=== PATIENT | female | born 1985 | race Caucasian/White ===

== ENCOUNTER 2021-01-15 19:34 | Emergency (ER) | payer BC, SELFPAY ==
--- NOTE | 2021-01-15 19:40 | ED.URI ---
HPI - URI/Sore Throat General Chief Complaint: Upper Respiratory Infection Stated Complaint: cough/earpain/headache Time Seen by Provider: 01/15/21 19:40 Source: patient and RN notes reviewed Mode of arrival: ambulatory Limitations: no limitations History of Present Illness HPI Narrative: 35-year-old female presents with concern for rhinorrhea, nasal congestion, scratchy throat, cough. Reports Covid exposure last week. Reports she has been vaccinated for Covid. She denies shortness of breath, body aches, chills, sweats, fever. Reports she takes Marlys and Flonase. MD elicited complaint: cough Related Data Home Medications Medication Instructions Recorded Confirmed clonazepam 2 mg tablet 2 mg PO DAILY 05/03/19 01/15/21 norethindrone 0.4 mg-ethinyl 1 tablet PO DAILY 05/03/19 01/15/21 estradiol 35 mcg tablet sertraline 100 mg tablet 100 mg PO DAILY 05/03/19 01/15/21 Allergies Allergy/AdvReac Type Severity Reaction Status Date / Time levofloxacin Allergy Unknown joint Verified 01/15/21 19:55 swelling Review of Systems Review of Systems: CONSTITUTIONAL: Denies malaise, chills, sweats, or fever. EYES: Denies visual changes, redness, or discharge. ENT: Reports rhinorrhea, congestion, otalgia and sore throat. CARDIOVASCULAR: Denies chest pain, palpitations, or edema. RESPIRATORY: Reports cough. Denies dyspnea. GASTROINTESTINAL: Denies abdominal pain, nausea, vomiting, diarrhea SKIN: Denies rash or itching. MUSCULOSKELETAL: Denies myalgia. NEUROLOGIC: Reports headache. All systems reviewed & are unremarkable except as noted in HPI and below PMFSH Past Medical History Medical History (Updated 01/15/21 @ 20:07 by Grace Davis NP) Anxiety Bronchitis Chronic migraine with aura Endometriosis Insomnia Mixed hyperlipidemia Surgical History Surgical History History of arthroscopy of left knee History of laparoscopy Family History Family History Grandparent Family history of pancreatic cancer Family history of lung cancer Father Hypertension Family history of elevated blood lipids Mother Family history of elevated blood lipids Social History Social History (Updated 01/16/20 @ 09:28 by Isela Trujillo Social History: Single Smoking status: Never smoker Second hand tobacco smoke exposure: No Alcohol intake: current Alcohol use details: socially Substance use: never Substance use type: does not use Gender identity (if verbalized by the patient): Female Comments At time of signature, agree with nursing past medical, surgical, social and family history. There is no relevant family history pertinent to the presenting complaint Exam Narrative: GENERAL: Well-appearing, well-nourished, and in no acute distress. HEAD: Normocephalic EYES: PERRLA, conjunctivae clear ENT: Nares clear, turbinates erythematous, clear discharge. Mucous membranes moist. TM pearly bacon with sharp light reflex bilaterally; no tragal tenderness. Oropharynx mildly erythematous without lesions. Tonsils not enlarged and without exudate, no drooling, no hoarseness, no trismus, uvula midline. NECK: Supple. No lymphadenopathy CHEST: Clear to auscultation, breath sounds equal. No wheezing, rhonchi, rales, or stridor. No respiratory distress, speaks in full sentences. HEART: Regular rate and rhythm. No murmur heard. SKIN: Warm, dry, no rash. NEURO: Alert and oriented x3. PSYCH: Normal mood and affect Course Course Emergency Course: Patient is aware of diagnosis, understands and agrees to treatment plan. Anticipatory guidance given. Patient agrees to follow-up as directed and is aware of reasons to seek care at the emergency department. Portions of this record may have been created with voice recognition software Vital Signs Vital signs: Reviewed. MDM - URI/Sore Throat [facility] Narrative Medical decisio
[2021-01-15 19:47] VITALS: BP 130/91; PULSE 90; RESP 16; TEMP 37.2; O2SAT 99
== END 2021-01-15 20:13 | disposition home or self-care (01) ==
PROVIDERS: Emergency Provider Nurse Practitioner; PCP Family Medicine
DX: U07.1 COVID-19 (principal); E78.2 Mixed hyperlipidemia; N80.9 Endometriosis, unspecified; F41.9 Anxiety disorder, unspecified
CPT/HCPCS: 87426; 99213; C9803; G0463

== ENCOUNTER 2021-04-16 16:49 | Emergency (ER) | payer BC, SELFPAY ==
[2021-04-16 16:58] VITALS: BP 144/82; PULSE 92; RESP 16; TEMP 36.9; O2SAT 100
--- NOTE | 2021-04-16 16:59 | ED.URI ---
HPI - URI/Sore Throat General Chief Complaint: Upper Respiratory Infection Stated Complaint: sore throat/abd pain/cough Source: patient and RN notes reviewed Mode of arrival: ambulatory Limitations: no limitations History of Present Illness HPI Narrative: Isela is a 35-year-old female patient ambulated into the [facility] today. Patient states she has a 5 to 6-day history of sore throat, sinus drainage, and right ear pain. Patient states taking Zyrtec since Wednesday. 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 Patient had Covid January 15, 2021. Patient has also had her Covid vaccines and booster. Related Data Home Medications Medication Instructions Recorded Confirmed clonazepam 2 mg tablet 2 mg PO DAILY 05/03/19 04/16/21 norethindrone 0.4 mg-ethinyl 1 tablet PO DAILY 05/03/19 04/16/21 estradiol 35 mcg tablet sertraline 100 mg tablet 100 mg PO DAILY 05/03/19 04/16/21 cetirizine [Zyrtec] 10 mg PO DAILY 04/16/21 04/16/21 Allergies Allergy/AdvReac Type Severity Reaction Status Date / Time levofloxacin Allergy Unknown joint Verified 04/16/21 16:54 swelling Review of Systems Review of Systems: CONSTITUTIONAL: Denies body aches, fever, chills, or sweats. EYES: Denies visual changes, redness, or discharge. ENT: + rhinorrhea, congestion, sore throat, and right otalgia. CARDIOVASCULAR: Denies chest pain, palpitations, or edema. RESPIRATORY: Denies cough or dyspnea. GASTROINTESTINAL: Denies abdominal pain, nausea, vomiting, or diarrhea. GENITOURINARY: Denies dysuria or hematuria. SKIN: Denies rash, itching, or wounds. MUSCULOSKELETAL: Denies back pain, joint pain, or myalgia. NEUROLOGIC: Denies headache, numbness, tingling, or weakness. PSYCH: Denies depression or anxiety. All systems reviewed & are unremarkable except as noted in HPI and below PMFSH Past Medical History Medical History Anxiety Bronchitis Chronic migraine with aura Endometriosis Insomnia Mixed hyperlipidemia Surgical History Surgical History History of arthroscopy of left knee History of laparoscopy Family History Family History Grandparent Family history of pancreatic cancer Family history of lung cancer Father Hypertension Family history of elevated blood lipids Mother Family history of elevated blood lipids Social History Social History Social History: Single Smoking status: Never smoker Second hand tobacco smoke exposure: No Alcohol intake: current Alcohol use details: socially Substance use: never Substance use type: does not use Gender identity (if verbalized by the patient): Female Sexual Orientation (if Verbalized by the Patient): Straight or Heterosexual Comments At time of signature, I have reviewed and agree with nursing past medical, surgical, social and family history unless otherwise noted. Please see nursing chart for further information. There is no relevant family history pertinent to the presenting complaint Exam Narrative: GENERAL: Well-appearing, well-nourished, and in no acute distress. HEAD: Normocephalic, atraumatic. EYES: EOMI. No redness or drainage. Conjunctivae normal. ENT: Mucous membranes pink and moist. Nasal membranes erythematous clear rhinorrhea. Bilateral tympanic membranes are dull with mild bulging and moderate fluid. Posterior pharynx is erythemic, with mild edema and without exudate. Uvula midline. NECK: Normal AROM. Supple. No lymphadenopathy. CHEST: No respiratory distress. Clear to auscultation. ABDOMEN: Soft, nontender, nondistended, normal active bowel sounds. MUSCULOSKELETAL: No bony tenderness. EXTREMITIES: Normal range of motion. No edema. SKIN: Warm, dry, no rash. Capillary refi
== END 2021-04-16 17:15 | disposition home or self-care (01) ==
PROVIDERS: Emergency Provider Nurse Practitioner Family; PCP Family Medicine
DX: J01.90 Acute sinusitis, unspecified (principal); N80.9 Endometriosis, unspecified; E78.2 Mixed hyperlipidemia; F41.9 Anxiety disorder, unspecified
CPT/HCPCS: 99213; G0463

== ENCOUNTER 2021-04-18 17:01 | Emergency (ER) | payer BC, SELFPAY ==
[2021-04-18 17:37] VITALS: BP 135/90; PULSE 96; RESP 20; TEMP 36.5; O2SAT 100
--- NOTE | 2021-04-18 19:40 | ED.URI ---
HPI - URI/Sore Throat General Chief Complaint: Upper Respiratory Infection Stated Complaint: sore throat Source: patient and RN notes reviewed Limitations: no limitations History of Present Illness HPI Narrative: The vaccinated patient, who is a schoolteacher non-smoker/nondrinker, returns for 6-day history of scratchy sore throat, mild hoarseness nasal congestion, ear fullness and mild cough. Symptoms are mild but persistent unrelieved with symptomatic treatment including prednisone 2 days ago[ which has caused some insomnia] . No fever, vomiting/diarrhea; no loss of taste/smell, CP, vomiting/diarrhea, S OB, wheezing-she had Covid illness a couple months ago. Related Data Home Medications Medication Instructions Recorded Confirmed norethindrone 0.4 mg-ethinyl 1 tablet PO DAILY 05/03/19 04/18/21 estradiol 35 mcg tablet sertraline 100 mg tablet 100 mg PO DAILY 05/03/19 04/18/21 cetirizine [Zyrtec] 10 mg PO DAILY 04/16/21 04/18/21 clonazepam 0.5 mg PO DAILY 04/18/21 04/18/21 Allergies Allergy/AdvReac Type Severity Reaction Status Date / Time levofloxacin Allergy Unknown joint Verified 04/18/21 17:29 swelling Review of Systems Review of Systems: General/Constitutional: No weight loss,fever Eyes: N0: Redness,discharge Ears/Nose/Throat: No: Epistaxis,ear discharge Respiratory: Denies: Hemoptysis Gastrointestinal: No Vomiting, Bleeding-rectal Skin: No Lumps, eruption Neurologic: No Focal Weakness,Sz Hematologic: Denies: Petechiae/Purpura Psychiatric: No: Suicida ideationl All Other Systems: Reviewed and Negative [facility] Past Medical History Medical History Anxiety Bronchitis Chronic migraine with aura Endometriosis Insomnia Mixed hyperlipidemia Surgical History Surgical History History of arthroscopy of left knee History of laparoscopy Family History Family History Grandparent Family history of pancreatic cancer Family history of lung cancer Father Hypertension Family history of elevated blood lipids Mother Family history of elevated blood lipids Social History Social History Social History: Single Smoking status: Never smoker Second hand tobacco smoke exposure: No Alcohol intake: current Alcohol use details: socially Substance use: never Substance use type: does not use Gender identity (if verbalized by the patient): Female Sexual Orientation (if Verbalized by the Patient): Straight or Heterosexual Comments At time of signature, agree with nursing past medical, surgical, social and family history. There is no relevant family history pertinent to the presenting complaint Exam Narrative: General Appearance: Well appearing, Well nourished EYE: PERRLA, Conjunctiva clear Ears: Auditory canal normal, TM normal Nose: Rhinorrhea, Mucousal erythema Mouth/Throat: MM moist, Uvula midline, Pharyngeal erythema Neck: Supple, No adenopathy Respiratory: No respiratory distress, Breath sounds equal, Clear to auscultation Cardiovascular: RRR, No JVD Musculoskeletal: Non tender, Normal strength Skin: Warm, Dry Neurological: A&O x3, CN II-XII intact Psychiatric: Normal mood, Normal affect Course Vital Signs Vital signs: Vital Signs Temperature 97.7 F 04/18/21 17:37 Pulse Rate 96 04/18/21 17:37 Respiratory Rate 20 04/18/21 17:37 Blood Pressure 135/90 04/18/21 17:37 Pulse Oximetry 100 04/18/21 17:37 Temperature 97.7 F 04/18/21 17:37 Pulse Rate 96 04/18/21 17:37 Respiratory Rate 20 04/18/21 17:37 Blood Pressure 135/90 04/18/21 17:37 Pulse Oximetry 100 04/18/21 17:37 MDM - URI/Sore Throat Lab Data Labs: Lab Results 04/18/21 Range/Units 18:54 POC SARS CoV-2 Ag Negative (Negative) D
== END 2021-04-18 19:06 | disposition home or self-care (01) ==
PROVIDERS: Emergency Provider Emergency Medicine; PCP Family Medicine
DX: R13.10 Dysphagia, unspecified (principal)
CPT/HCPCS: 87426; 99213; C9803; G0463

== ENCOUNTER 2021-09-05 02:19 | Day surgery (SDC) | payer BC, SELFPAY ==
[2021-09-04 14:31] VITALS: BMI 31.5
--- NOTE | 2021-09-04 14:36 | SUR.PREOP ---
Report to the Outpatient Waiting Room, entrance under the green pavilion located off [facility], at time ___1015____ on date _09/05/21 . OR Time: ___1214 . - You and your visitor will be asked a series of questions to screen for COVID 19 for your protection. - A mask is required within the hospital. Preoperative COVID Testing Requirements: No COVID Test needed if: (proof is required; if not received patient will have Rapid Test prior to entry) - Patient has received COVID Vaccine at least 14 days prior to procedure date or - Patient has positive COVID test result within last 90 days of surgery date. COVID Test needed if above criteria is not met If not COVID vaccinated a COVID test must be conducted within 72 hours of surgery and patient is asked to isolate self from time of testing until procedure. You will go to the [facility] for your COVID testing. The [facility] site is located at the corner of [address] from [facility]. You will only be called if COVID results are positive and your surgeon may reschedule your elective surgery date. Patients may have clear liquids (water, carbonated beverages, clear teas, apple juice) until 3 hours prior to surgery with a maximum of 20 ounces. - No food from midnight until time of surgery - Infants may have breast milk until 4 hours before surgery, formula 6 hours prior to surgery. - Children will be allowed to drink immediately following surgery. If applicable, please bring a bottle or sippy cup to assist with drinking. Juice, water, soda, and popsicles are readily available. For infants on formula, please bring formula the day of surgery. Pacifiers are allowed. Take the following medications with a SIP of water the morning of surgery: ____n/a Medications to discontinue per physician n/a Date to take last dose Please no make-up, nail bahamian, hairspray, perfume, deodorant, or body powder the day of surgery. No jewelry (including any body piercings) or valuables the day of surgery, leave them at home. Please take a shower or bath the night before, or the morning of, surgery with an antibacterial soap. Wear comfortable, loose fitting clothing. Children are encouraged to wear pajamas. - Jewelry must be removed prior to entering the operating room. Rings and piercings that are not removed may be cut off. - The hospital will not accept responsibility for valuables. - Please leave all valuables, including medications, at home the day of surgery. If you are going home after surgery, a licensed driver's license reviewing officer must drive you home. - NO public transportation without another adult. - We recommend that an adult stay with you for 24 hours following discharge. - We also recommend that you do not drive, make important decision, drink alcoholic beverages, or take any drugs that were not prescribed by your health care provider for at least 24 hours after your discharge time. For Pediatric surgeries, we recommend two adults accompany the child home (only one inside the building at this time). One visitor will be allowed to accompany the patient into the hospital. Patients visitor will be instructed to remain with patient at all times or leave the building. We will allow the visitor to come back to the postoperative area when patient is ready. Follow any additional instructions given to you from your surgeon. Telephone instructions given to __patient and asked if any additional questions and then verbalized understanding. Patient advised to call surgeon office or pre surgery nurse liaison [phone] if any additional questions.
[2021-09-05] VITALS (10 sets, daily range): BP systolic 107–141; BP diastolic 65–93; PULSE 70–94; RESP 12–19; TEMP 36.3–36.8; O2SAT 97–100
--- NOTE | 2021-09-05 07:11 | PM.IMHP ---
H&P: HPI History of Present Illness Date/Time: 09/05/21 07:11 35-year-old admitted for laparoscopic right cystectomy possible cyst destruction and likely salpingo-oophorectomy secondary to pain. Ultrasound shows a large ovarian cyst. Her pain has been unrelenting. Risks and benefits reviewed Chief Complaint: Right-sided pelvic pain with ovarian cyst on imaging Review of Systems Review of Systems: All systems reviewed & are unremarkable except as noted in HPI and below PMFSH Past Medical History Medical History Anxiety Bronchitis Chronic migraine with aura Endometriosis Insomnia Mixed hyperlipidemia Surgical History Surgical History History of arthroscopy of left knee History of laparoscopy Family History Family History Grandparent Family history of pancreatic cancer Family history of lung cancer Father Hypertension Family history of elevated blood lipids Mother Family history of elevated blood lipids Social History Social History Social History: Single Smoking status: Never smoker Second hand tobacco smoke exposure: No Alcohol intake: current Alcohol use details: socially Substance use: never Substance use type: does not use Living arrangements: alone Gender identity (if verbalized by the patient): Female Sexual Orientation (if Verbalized by the Patient): Straight or Heterosexual Meds Home Medications and Allergies Home Medications Medication Instructions Recorded Confirmed Type norethindrone 0.4 mg-ethinyl 1 tablet PO DAILY 05/03/19 09/04/21 History estradiol 35 mcg tablet sertraline 100 mg tablet 100 mg PO HS 05/03/19 09/04/21 History clonazepam 0.5 mg PO HS 04/18/21 09/04/21 History Allergies Allergy/AdvReac Type Severity Reaction Status Date / Time levofloxacin Allergy Unknown joint Verified 04/18/21 17:29 swelling Exam Const: General: no acute distress Eyes: General: appearance normal, both eyes and all related structures Neck: Neck: supple and no JVD Thyroid: thyroid normal Resp: Effort & Inspection: normal respiratory effort Auscultation: clear to auscultation bilaterally Cardio: Rate: regular rate Rhythm: regular rhythm GI: Inspection: non-distended GI Palp: Yes Soft to palpation, No Tenderness to palpation present (GI) and No Guarding due to palpation present (GI) Auscultation: normal bowel sounds : External Female Exam: normal external appearance Speculum Exam - Cervix: normal appearance of the cervix Bimanual exam- vagina & uterus: uterine shape normal Bimanual Exam- Adnexa, other: tender on the right Skin: General skin exam: no rashes or lesions noted Extrem: General: normal to inspection and no edema Psych: Mental Status: mental status grossly normal Affect: normal affect Assessment and Plan Additional Plan Impression: Right ovarian cyst and pelvic pain Plan: Laparoscopic right cystectomy
--- NOTE | 2021-09-05 07:12 | WPDHPUPDATE1 ---
History and Physical Update Update Date/Time: 09/05/21 07:12 History and Physical has been reviewed, including an updated exam of the patient. There are NO changes in the patient's condition. Risks, benefits, and alternatives have been discussed and questions answered. Patient agrees to proceed with procedure.
[2021-09-05] MEDS: ACETAMINOPHEN 500 MG TABLET 1000 MG PO (10:37)
[2021-09-05] MEDS: KETOROLAC 15 MG/ML VIAL (*BKC) IV PUSH (10:50)
--- NOTE | 2021-09-05 10:58 | WPDANESEPPF ---
Anes - Initial Pre Proc Eval Procedure: Operation Date: 09/05/21 12:15 Proposed Procedures p Laparoscopic Right Ovarian Cystectomy - Zaid Friedman MD Date/Time: 09/05/21 10:58 Surgeon: Zaid Friedman MD Pre Op Diagnosis: pelvic pain, right ovarian cyst Patient Data Age: 35 Gender: F Height: 1.78 m Weight: 101.4 kg Allergies Allergy/AdvReac Type Severity Reaction Status Date / Time doxycycline Allergy Mild Other Verified 09/05/21 10:28 levofloxacin Allergy Unknown joint Verified 09/05/21 10:28 swelling Home Medications Medication Instructions Recorded Confirmed Type norethindrone 0.4 mg-ethinyl 1 tablet PO DAILY 05/03/19 09/05/21 History estradiol 35 mcg tablet sertraline 100 mg tablet 100 mg PO HS 05/03/19 09/05/21 History clonazepam 0.5 mg PO HS 04/18/21 09/05/21 History hydrocodone-acetaminophen 1 tablet PO Q4H PRN #30 tablet 09/05/21 Rx Patient hx anesthesia problems: none Family hx anesthesia problems: none Results Review: All pre-operative results and documents have been reviewed as part of the pre-operative evaluation. [facility] Past Medical History Medical History Anxiety Bronchitis Chronic migraine with aura Endometriosis Insomnia Mixed hyperlipidemia Surgical History Surgical History History of arthroscopy of left knee History of laparoscopy Family History Family History Grandparent Family history of pancreatic cancer Family history of lung cancer Father Hypertension Family history of elevated blood lipids Mother Family history of elevated blood lipids Social History Social History Social History: Single Smoking status: Never smoker Second hand tobacco smoke exposure: No Alcohol intake: current Alcohol use details: socially Substance use: never Substance use type: does not use Living arrangements: alone Gender identity (if verbalized by the patient): Female Sexual Orientation (if Verbalized by the Patient): Straight or Heterosexual Anes - Eval Final PreProcedure Day of Procedure 09/05/21 10:58 Patient weight: obese Heart: regular rate and rhythm Lungs: clear to auscultation and normal air movement Airway: Mallampati scale class II Neurological: alert and oriented Last oral intake: >/= 8 hours ASA classification: II Emergent: no Anesthetic plan: proceed Anesthesia type and monitoring: general ETT and standard monitoring Results Review: All pre-operative results and documents have been reviewed as part of the pre-operative evaluation. Informed Consent: The patient's anesthetic plan and its attendant risks and benefits were discussed with the patient/family/POA. Questions were solicited and answers provided to the satisfaction of the patient/family/POA.
[2021-09-05] MEDS: LACTATED RINGERS 1,000 ML 30 ML IV CONT ×3 (11:20→14:47)
[2021-09-05] MEDS: SCOPOLAMINE 1.5 MG PATCH TRANSDERM (11:29)
--- NOTE | 2021-09-05 12:50 | W.PM.PROC2 ---
Procedure Note - Detailed Date of Procedure 09/05/21 Pre-op Diagnosis pelvic pain, right ovarian cyst Post-op Diagnosis Same Procedure Performed Laparoscopic destruction of right ovarian cyst Surgeon Zaid Friedman MD Anesthesia General Indications this 35-year-old female with known fibroids and right ovarian cyst with severe pelvic pain Findings a large fibroid uterus was seen with irregular fibroids. Left ovary and tube were within normal limits the right tube was normal and the left ovary contained about a 4cm ovarian cyst that had a benign look to it Description of Procedure patient was prepped draped in the normal sterile fashion placed in dorsal position. Under trach anesthesia weighted speculum placed posterior fornix vagina. Anterior lip of the cervix grasped with single-tooth tenaculum and the Riggins's cannula inserted to the cervix these were attached together to be used later for uterine manipulation. After the bladder clear urine the weighted speculum was removed and gloves were changed. An infraumbilical incision made the Veress needle passed in the abdomen. Abdomen filled with CO2 gas [id number]. The 5mm trocar advanced under direct visualization with the Opti view and no injury seen. Patient placed in Trendelenburg and a suprapubic incision made. The 5mm trocar advanced under direct visualization assuring no injury. A 5cc of serosanguineous fluid seen in the cul-de-sac suction and removed. A large right ovarian cyst was seen was benign in nature the opposite ovary tube appeared within normal limits and several irregular fibroids were noted in the uterus. The appendix and gallbladder appeared within normal limits the ovary was opened in linear fashion and drained of about 30cc of serosanguineous fluid this was the suction and removed. No other abnormalities were seen in the gas removed from the abdomen. The trocars removed and the incisions closed with 4 Monocryl and glue the patient was awake and went to recovery in satisfactory condition. All sponge, needle, instrument counts were correct. There were no immediate complications noted Estimated Blood Loss 5 Drains No Packing No Pathology None sent Complications No immediate complications Condition Stable Disposition PACU
[2021-09-05] MEDS: fentaNYL CITRATE INJ (*CRX) 100 MCG/2 ML VIAL 25 MCG IV PUSH ×8 (13:15→13:43)
[2021-09-05] MEDS: ONDANSETRON INJ 4 MG/2 ML VIAL IV PUSH (14:06)
[2021-09-05] MEDS: diphenhydrAMINE HCl INJ 50 MG/ML VIAL 25 MG IV PUSH (14:41)
== END 2021-09-05 15:38 | disposition home or self-care (01) ==
PROVIDERS: PCP Nurse Practitioner Family; Visit Provider Obstetrics & Gynecology
PROC: (CPT 49320; principal; 2021-09-05 12:15)
DX: N83.201 Unspecified ovarian cyst, right side (principal); D25.9 Leiomyoma of uterus, unspecified; R10.2 Pelvic and perineal pain; F41.9 Anxiety disorder, unspecified; N80.9 Endometriosis, unspecified; G47.00 Insomnia, unspecified; E78.2 Mixed hyperlipidemia; E66.9 Obesity, unspecified; Z68.32 Body mass index [BMI] 32.0-32.9, adult
CPT/HCPCS: 58662; 36415; 86850; 86900; 86901; A9270; J1100; J1200; J1885; J2250; J2405; J2704; J2710; J3010; J7120

== ENCOUNTER 2022-05-01 10:17 | Emergency (ER) | payer BC, SELFPAY ==
[2022-05-01 10:50] VITALS: BP 134/92; PULSE 121; RESP 16; TEMP 36.2; O2SAT 99
--- NOTE | 2022-05-01 11:11 | ED.URI ---
HPI - URI/Sore Throat General Chief Complaint: Upper Respiratory Infection Stated Complaint: cough,sore throat,stuffy nose Time Seen by Provider: 05/01/22 11:46 Source: patient and RN notes reviewed Mode of arrival: ambulatory Limitations: no limitations History of Present Illness HPI Narrative: 36-year-old female presents with concern for 3 week history of sinus congestion, cough, general malaise. Reports symptoms worsen over the last 3 days. Reports she has been taking iuhb-fkq-[id number] medications without relief. MD elicited complaint: cough and nasal congestion Related Data Home Medications Medication Instructions Recorded Confirmed norethindrone 0.4 mg-ethinyl 1 tablet PO DAILY 05/03/19 05/01/22 estradiol 35 mcg tablet (Vyfemla (28)) sertraline 100 mg tablet (Zoloft) 100 mg PO HS 05/03/19 05/01/22 clonazepam 0.5 mg tablet 0.5 mg PO HS 04/18/21 05/01/22 Allergies Allergy/AdvReac Type Severity Reaction Status Date / Time doxycycline Allergy Mild Other Verified 05/01/22 11:47 levofloxacin Allergy Unknown joint Verified 05/01/22 11:47 swelling Review of Systems Review of Systems: CONSTITUTIONAL: Reports malaise. Denies chills, sweats, or fever. EYES: Denies visual changes, redness, or discharge. ENT: Reports rhinorrhea, congestion, sinus pain. Denies otalgia and sore throat. CARDIOVASCULAR: Denies chest pain, palpitations, or edema. RESPIRATORY: Reports cough. Denies dyspnea. GASTROINTESTINAL: Denies abdominal pain, nausea, vomiting, diarrhea SKIN: Denies rash or itching. MUSCULOSKELETAL: Denies myalgia. NEUROLOGIC: Denies headache. All systems reviewed & are unremarkable except as noted in HPI and below PMFSH Past Medical History Medical History Anxiety Bronchitis Chronic migraine with aura Endometriosis Insomnia Mixed hyperlipidemia Surgical History Surgical History History of arthroscopy of left knee History of laparoscopy Family History Family History Grandparent Family history of pancreatic cancer Family history of lung cancer Father Hypertension Family history of elevated blood lipids Mother Family history of elevated blood lipids Social History Social History Social History: Single Smoking status: Never smoker Second hand tobacco smoke exposure: No Alcohol intake: current Alcohol use details: socially Substance use: never Substance use type: does not use Gender identity (if verbalized by the patient): Female Sexual Orientation (if Verbalized by the Patient): Straight or Heterosexual Comments At time of signature, agree with nursing past medical, surgical, social and family history. There is no relevant family history pertinent to the presenting complaint Exam Narrative: GENERAL: nontoxic appearing and in no acute distress. HEAD: Normocephalic EYES: PERRLA, conjunctivae clear ENT: Nares clear, turbinates edematous and erythematous Mucous membranes moist. TM pearly bacon with dull light reflex bilaterally; no tragal tenderness. Oropharynx not erythematous without lesions. Tonsils not enlarged and without exudate, no drooling, no hoarseness, no trismus, uvula midline. NECK: Supple. No lymphadenopathy CHEST: Clear to auscultation, breath sounds equal. No wheezing, rhonchi, rales, or stridor. No respiratory distress, speaks in full sentences. HEART: Regular rate and rhythm. No murmur heard. SKIN: Warm, dry, no rash. NEURO: Alert and oriented x3. PSYCH: Normal mood and affect Course Course Emergency Course: Patient is aware of diagnosis, understands and agrees to treatment plan. Anticipatory guidance given. Patient agrees to follow-up as directed and is aware of reasons to seek care at the emergency department. Portions of th
== END 2022-05-01 11:56 | disposition home or self-care (01) ==
PROVIDERS: Emergency Provider Nurse Practitioner
DX: J32.9 Chronic sinusitis, unspecified (principal); J40 Bronchitis, not specified as acute or chronic; N80.9 Endometriosis, unspecified; E78.2 Mixed hyperlipidemia; F41.9 Anxiety disorder, unspecified
CPT/HCPCS: 87804; 99213; G0463

== ENCOUNTER 2022-10-26 18:15 | Emergency (ER) | payer BC, SELFPAY ==
[2022-10-26 18:20] VITALS: BP 137/97; PULSE 97; RESP 18; TEMP 36.4; O2SAT 99
--- NOTE | 2022-10-26 18:27 | ED.EAR ---
HPI - Ear Problem General Chief complaint: Ear Stated complaint: lt ear pain Time Seen by Provider: 10/26/22 18:27 Source: patient Mode of arrival: ambulatory Limitations: no limitations History of Present Illness HPI Narrative: 37 y/o female presented for c/o left ear pain and hearing loss for 10 days. Patient has taken a course of Augmentin as prescribed by urgent care, but denies any relief in symptoms. She then followed up with ENT Dr Camarena on 10/20/22 at which time he drained the ear fluid and she started a steroid. States she completed the abx and steroids yesterday but pain is now severe. Rates /, hurts with chewing. Endorses occasional clear drainage, occasional dizziness. Denies tinnitus. Denies vomiting, fever or chills. Scheduled to f/u with ENT in 3 days. MD Complaint: ear pain Related Data Home Medications Medication Instructions Recorded Confirmed sertraline 100 mg tablet (Zoloft) 100 mg PO HS 05/03/19 10/26/22 clonazepam 0.5 mg tablet 0.5 mg PO HS 04/18/21 10/26/22 relugolix 40 mg-estradiol 1 1 tablet PO DAILY 10/20/22 10/26/22 mg-norethindrone acetate 0.5 mg tablet (Myf[place]) Allergies Allergy/AdvReac Type Severity Reaction Status Date / Time doxycycline Allergy Mild Other Verified 10/26/22 18:21 levofloxacin Allergy Unknown joint Verified 10/26/22 18:21 swelling Review of Systems Review of Systems: CONSTITUTIONAL: Denies malaise, chills, or fever. EYES: Denies visual changes, redness, or discharge. ENT: Denies rhinorrhea, congestion, sinus pain, and sore throat. Reports ear pain CARDIOVASCULAR: Denies chest pain, palpitations, or edema. RESPIRATORY: Denies cough or dyspnea. GASTROINTESTINAL: Denies abdominal pain, nausea, vomiting, diarrhea SKIN: Denies rash or itching. MUSCULOSKELETAL: Denies myalgia. NEUROLOGIC: Denies headache. All systems reviewed & are unremarkable except as noted in HPI and below PMFSH Past Medical History Medical History Anxiety Bronchitis Chronic migraine with aura Endometriosis Fluid level behind tympanic membrane of left ear Insomnia Mixed hyperlipidemia Pain in left ear Surgical History Surgical History History of arthroscopy of left knee History of laparoscopy Family History Family History Grandparent Family history of pancreatic cancer Family history of lung cancer Father Hypertension Family history of elevated blood lipids Mother Family history of elevated blood lipids Social History Social History Social History: Caffeine-daily Smoking status: Never smoker Second hand tobacco smoke exposure: No Alcohol intake: current Alcohol use details: rarely Substance use: never Substance use type: does not use Lack of Transportation: No Lack of Food: Never True Current Housing: I Have Housing Concerned About Future Housing: No Difficulty Paying Gas/Electric Bills: No Difficulty Paying for Meds: No Currently Unemployed: No Education: Bachelor's Degree Difficulty w/ Childcare or Family Care: No Living arrangements: alone Occupation/Education: occupation Gender identity (if verbalized by the patient): Female Sexual Orientation (if Verbalized by the Patient): Straight or Heterosexual Comments At time of signature, agree with nursing past medical, surgical, social and family history. There is no relevant family history pertinent to the presenting complaint Exam Narrative: GENERAL: Well-appearing, no acute distress. HEAD: Normocephalic EYES: conjunctivae clear ENT: Nares clear. Mucous membranes moist. Right TM pearly bacon with normal light reflex; Left TM erythematous and bulging with purulent effusion; no tragal or mastoid tenderness. Decreased hearing to left. NEC
== END 2022-10-26 18:42 | disposition home or self-care (01) ==
PROVIDERS: Emergency Provider Nurse Practitioner Family
DX: H66.005 Acute suppurative otitis media without spontaneous rupture of ear drum, recurrent, left ear (principal); N80.9 Endometriosis, unspecified; E78.2 Mixed hyperlipidemia; F41.9 Anxiety disorder, unspecified
CPT/HCPCS: 99213; G0463

== ENCOUNTER 2023-03-30 15:13 | Emergency (ER) | payer BC, SELFPAY ==
[2023-03-30 15:24] VITALS: BP 130/81; PULSE 93; RESP 16; TEMP 36.7; O2SAT 99
--- NOTE | 2023-03-30 15:49 | ED.URI ---
HPI - URI/Sore Throat General Chief Complaint: Upper Respiratory Infection Stated Complaint: Sinus Time Seen by Provider: 03/30/23 15:49 Source: patient, RN notes reviewed and old records reviewed Mode of arrival: ambulatory Limitations: no limitations History of Present Illness HPI Narrative: 37-year-old female presents to the [facility] with complaints of sinus congestion, rhinorrhea. Symptoms started last or Wednesday, 4 -5 days ago. Has tried [id number] products minimal to no relief. Related Data Home Medications Medication Instructions Recorded Confirmed sertraline 100 mg tablet (Zoloft) 100 mg PO HS 05/03/19 03/30/23 clonazepam 0.5 mg tablet 0.5 mg PO HS 04/18/21 03/30/23 relugolix 40 mg-estradiol 1 1 tablet PO DAILY 10/20/22 03/30/23 mg-norethindrone acetate 0.5 mg tablet (Myf[place]) rosuvastatin 10 mg tablet 10 mg DIRECTED 03/30/23 03/30/23 Allergies Allergy/AdvReac Type Severity Reaction Status Date / Time doxycycline Allergy Mild Other Verified 11/05/22 18:12 levofloxacin Allergy Unknown joint Verified 11/05/22 18:12 swelling Review of Systems Review of Systems: All systems reviewed & are unremarkable except as noted in HPI and below Constitutional: Constitutional: Reports no additional constitutional complaints Eyes: Eyes: Reports no additional eye complaints ENT: Reports as per HPI, Reports headache(s), Reports sinus pain and Reports sinus pressure Cardiovascular: Cardiovascular: Reports no additional cardiovascular complaints, Denies chest pain and Denies dyspnea Respiratory: Respiratory: Reports no additional respiratory complaints, Denies chest congestion, Denies cough and Denies dyspnea Gastrointestinal: Gastrointestinal: Reports no additional gastrointestinal complaints, Denies abdominal pain, Denies nausea and Denies vomiting Musculoskeletal: Musculoskeletal: Reports no additional musculoskeletal complaints Integumentary/Breasts: Skin/Breast: Reports system reviewed and no additional complaints, except as docu Neurologic: Reports system reviewed and no additional complaints, except as documented Psychiatric: Psychiatric: Reports no additional psychiatric complaints Allergic/Immunologic: Allergic/Immunologic: Reports no additional allergic/immunologic complaints PMFSH Past Medical History Medical History Anxiety Bronchitis Chronic migraine with aura Endometriosis Fluid level behind tympanic membrane of left ear Insomnia Mixed hyperlipidemia Pain in left ear Surgical History Surgical History History of arthroscopy of left knee History of laparoscopy Family History Family History Grandparent Family history of pancreatic cancer Family history of lung cancer Father Hypertension Family history of elevated blood lipids Mother Family history of elevated blood lipids Social History Social History Social History: Caffeine-daily Smoking status: Never smoker Second hand tobacco smoke exposure: No Alcohol intake: current Alcohol use details: rarely Substance use: never Substance use type: does not use Lack of Transportation: No Lack of Food: Never True Current Housing: I Have Housing Concerned About Future Housing: No Difficulty Paying Gas/Electric Bills: No Difficulty Paying for Meds: No Currently Unemployed: No Education: Bachelor's Degree Difficulty w/ Childcare or Family Care: No Living arrangements: alone Occupation/Education: occupation Gender identity (if verbalized by the patient): Female Sexual Orientation (if Verbalized by the Patient): Straight or Heterosexual Comments At the time of my signature, I reviewed and agree with the nursing past medical, surgical, social, and family his
== END 2023-03-30 16:13 | disposition home or self-care (01) ==
PROVIDERS: Emergency Provider Nurse Practitioner; PCP Nurse Practitioner Family
DX: H66.92 Otitis media, unspecified, left ear (principal); J32.9 Chronic sinusitis, unspecified; N80.9 Endometriosis, unspecified; E78.2 Mixed hyperlipidemia; F41.9 Anxiety disorder, unspecified
CPT/HCPCS: 99213; G0463

== ENCOUNTER 2023-04-22 17:24 | Emergency (ER) | payer BC, SELFPAY ==
--- NOTE | ~2023-04-22 | XR_ITS ---
EXAMINATION: XR chest 2V DATE: 04/22/2023 18:01 INDICATION: Cough and right upper lobe crackles TECHNIQUE: PA and lateral views of the chest were obtained. COMPARISON: Chest radiograph dated 03/08/2016 FINDINGS: The lungs remain clear with no focal airspace opacities, pulmonary edema, pleural effusion or pneumot horax. The cardiomediastinal silhouette is normal. Visualized bones and soft tissues are unremarkable . IMPRESSION: 1. No acute cardiopulmonary disease. Reviewed, dictated and finalized at location A. ER SERVICES ASSISTANT
--- NOTE | 2023-04-22 17:31 | ED.URI ---
HPI - URI/Sore Throat General Chief Complaint: Upper Respiratory Infection Stated Complaint: Cough Time Seen by Provider: 04/22/23 17:49 Source: patient and RN notes reviewed Mode of arrival: ambulatory Limitations: no limitations History of Present Illness HPI Narrative: 37-year-old female presents with concern for 4-5 day history of cough. Reports she has been taking [id number]-[id number] medications and an albuterol inhaler without relief of symptoms. She denies rhinorrhea, nasal congestion. Denies fever, chills, sweats MD elicited complaint: cough Related Data Home Medications Medication Instructions Recorded Confirmed sertraline 100 mg tablet (Zoloft) 100 mg PO HS 05/03/19 04/22/23 clonazepam 0.5 mg tablet 0.5 mg PO HS 04/18/21 04/22/23 relugolix 40 mg-estradiol 1 1 tablet PO DAILY 10/20/22 04/22/23 mg-norethindrone acetate 0.5 mg tablet (Myf[place]) albuterol sulfate 90 mcg/actuation inhalation 04/22/23 04/22/23 aerosol inhaler phentermine 30 mg capsule mg 04/22/23 04/22/23 Allergies Allergy/AdvReac Type Severity Reaction Status Date / Time doxycycline Allergy Mild Other Verified 04/22/23 17:32 levofloxacin Allergy Unknown joint Verified 04/22/23 17:32 swelling Review of Systems Review of Systems: CONSTITUTIONAL: Denies malaise, chills, sweats, or fever. EYES: Denies visual changes, redness, or discharge. ENT: Reports rhinorrhea, congestion, sinus pain, otalgia and sore throat. CARDIOVASCULAR: Denies chest pain, palpitations, or edema. RESPIRATORY: Reports cough. Denies dyspnea. GASTROINTESTINAL: Denies abdominal pain, nausea, vomiting, diarrhea SKIN: Denies rash or itching. MUSCULOSKELETAL: Denies myalgia. NEUROLOGIC: Denies headache. All systems reviewed & are unremarkable except as noted in HPI and below PMFSH Past Medical History Medical History Anxiety Bronchitis Chronic migraine with aura Endometriosis Fluid level behind tympanic membrane of left ear Insomnia Mixed hyperlipidemia Pain in left ear Surgical History Surgical History History of arthroscopy of left knee History of laparoscopy Family History Family History Grandparent Family history of pancreatic cancer Family history of lung cancer Father Hypertension Family history of elevated blood lipids Mother Family history of elevated blood lipids Social History Social History Social History: Caffeine-daily Smoking status: Never smoker Second hand tobacco smoke exposure: No Alcohol intake: current Alcohol use details: rarely Substance use: never Substance use type: does not use Lack of Transportation: No Lack of Food: Never True Current Housing: I Have Housing Concerned About Future Housing: No Difficulty Paying Gas/Electric Bills: No Difficulty Paying for Meds: No Currently Unemployed: No Education: Bachelor's Degree Difficulty w/ Childcare or Family Care: No Living arrangements: alone Occupation/Education: occupation Gender identity (if verbalized by the patient): Female Sexual Orientation (if Verbalized by the Patient): Straight or Heterosexual Comments At time of signature, agree with nursing past medical, surgical, social and family history. There is no relevant family history pertinent to the presenting complaint Exam Narrative: GENERAL: Well-appearing, well-nourished, and in no acute distress. HEAD: Normocephalic EYES: PERRLA, conjunctivae clear ENT: Nares clear. Mucous membranes moist. TM pearly bacon with sharp light reflex bilaterally; no tragal tenderness. Oropharynx not erythematous without lesions. Tonsils not enlarged and without exudate, no drooling, no hoarseness, no trismus, uvula midline. NECK: Supple. No lymphadenopathy CHEST: V
[2023-04-22 17:35] VITALS: BP 147/89; PULSE 106; RESP 16; TEMP 36.6; O2SAT 100
== END 2023-04-22 18:38 | disposition home or self-care (01) ==
PROVIDERS: Emergency Provider Nurse Practitioner; PCP Nurse Practitioner Family
DX: J40 Bronchitis, not specified as acute or chronic (principal); Z20.822 Contact with and (suspected) exposure to COVID-19; N80.9 Endometriosis, unspecified; E78.2 Mixed hyperlipidemia; F41.9 Anxiety disorder, unspecified
CPT/HCPCS: 71046; 87426; 99213; C9803; G0463

== ENCOUNTER 2024-06-26 10:21 | Outpatient (CLI) | payer BC, SELFPAY ==
--- NOTE | ~2024-06-26 | CT_ITS ---
EXAMINATION: CT abdomen pelvis w con DATE: 06/26/2024 10:50 INDICATION: Change in bowel habits. TECHNIQUE: Computed tomography (CT) of the abdomen and pelvis was performed with 100 mL Omnipaque 350 intravenous contrast. Automated exposure control and iterative reconstruction technique were employe d. The dose-length product was 1021.56 mGy-cm. COMPARISON: CT abdomen and pelvis 07/25/2013 FINDINGS: The visualized portions of the lung bases demonstrate mild atelectasis. No pleural effusion . The heart size is normal. No pericardial effusion. There is diffuse hepatic steatosis. The gallblad theresa, spleen, pancreas, adrenal glands, and left kidney are normal. There is a 5 mm cyst in right kidn ey. There are no dilated loops of bowel. The appendix is normal. There are uterine fibroids measuring up to 3.1 cm. There are no pathologically enlarged lymph nodes. There is no free intraperitoneal flu id. There is mild thoracic and lumbar spondylosis. IMPRESSION: 1. Uterine fibroids. 2. Diffuse hepatic steatosis. Reviewed, dictated and finalized at location B. CARE WORKER
== END 2024-06-26 10:22 | disposition home or self-care (01) ==
PROVIDERS: PCP Nurse Practitioner Family; Visit Provider Nurse Practitioner Family
DX: D25.9 Leiomyoma of uterus, unspecified (principal); K76.0 Fatty (change of) liver, not elsewhere classified
CPT/HCPCS: 74177; Q9967